=== PATIENT | male | born 1945 | race Caucasian/White ===

== ENCOUNTER 2024-09-06 04:34 | Emergency (ER) | payer BC, SELFPAY ==
[2024-09-06] VITALS (9 sets, daily range): BP systolic 137–169; BP diastolic 66–94; PULSE 84; O2SAT 93; BMI 30.1
[2024-09-06] MEDS: PERCOCET 5/325 1 TABLET PO (05:29)
[2024-09-06] MEDS: MOTRIN 400 MG PO (05:29)
--- NOTE | 2024-09-06 05:35 | EDRN ---
Pt. medicated for pain per MAR orders. RN explained to pt. plan to place knee immobilzer/trial ambulation, pt. began crying hysterically, stating, 'oh my god, oh my god, tell the doctor to get back in here, I can't even function, I need to be
checked into this hospital now'. RN attempted to calm pt., explained to pt. pain medications just now administered and could take time to take effect, RN explained will allow time, then will reassess pain level.
--- NOTE | 2024-09-06 06:07 | ED.GENMED ---
History of Present Illness
<Elias Brock MD - Last Filed: 09/08/24 13:30>
General
Chief Complaint: Musculo-Skeletal Complaint
Source: patient
Exam Limitations: none
Time Seen by Provider: 09/06/24 04:52
Nursing documentation reviewed up to this point in time: agreed with
History of Present Illness
History of Present Illness:
Patient with history of rheumatoid arthritis and osteoarthritis, presents to ED secondary to worsening right knee pain with swelling over the past 24 hours. Denies fever or chills. Denies direct trauma. Patient recently traveled from [place],
visiting family. Yesterday, patient states that he woke up with knee stiffness, which progressed to worsening pain, as he was visiting multiple family numbers and walking more than usual. Of note, patient reports having consultation with his
orthopedic surgeon this summer, at which time, he was told that his right knee is 'syic-io-juer', but not ready for surgery.
Review of Systems
<Elias Brock MD - Last Filed: 09/08/24 13:30>
Review of Systems
Allergies reviewed?: Yes
All Other Systems: ROS reviewed and negative except as documented in HPI and ROS
Constitutional: Reports no symptoms
Musculoskeletal: Reports other (knee pain)
Skin: Reports no symptoms
Neurological: Reports no symptoms
Phy Exam
<Elias Brock MD - Last Filed: 09/08/24 13:30>
Physical Exam
Physical Exam:
Physical Exam
General: mild painful distress, not acutely ill. afebrile
Head: nc/at. eomi
Neck: supple. normal range of motion
Neuro: alert and oriented x 3. no focal neurological deficits
Skin: no rash
Psychiatric: well kept. interactive and cooperative
Extremities: right knee - mild suprapatellar swelling noted with diffuse tenderness to palpation, without erythema/ecchymosis/warmth. calf nontender to palpation, withou swelling.
Course
<Elias Brock MD - Last Filed: 09/08/24 13:30>
Orders/Labs/Results
Orders:
Orders
09/06/24 04:52
Knee, Right 4 or More Views [CR Knee- Right 4 Or More View*] Urgent
Comment:
Reason For Exam: significant non traumatic pain
09/06/24 05:21
Ibuprofen [Motrin] 400 mg PO NOW STA
Oxycodone/Acetaminophen [Percocet 5/325] 1 tablet PO NOW STA
09/06/24 05:22
Knee Immobilizer Right-Treatme ONCE
09/06/24 06:10
Case Management Consult ONCE
Case Management Consult: Discharge Planning
Physical Therapy Consult [Pt Eval And Treat] Urgent
Activity Level: As Tolerated
09/06/24 09:50
Hydrocodone 5/APAP 325 [[place] 5/325] 1 tablet PO NOW STA
Vital Signs
Initial and Last Documented VS:
Initial Vital Signs
Temp Pulse Resp BP Pulse Ox
97.6 F 92 28 166/94 97
09/06/24 04:38 09/06/24 04:38 09/06/24 04:38 09/06/24 04:38 09/06/24 04:38
Last Documented Vital Signs
Temp Pulse Resp BP Pulse Ox
97.6 F 77 23 140/74 93
09/06/24 04:38 09/06/24 10:15 09/06/24 10:15 09/06/24 10:00 09/06/24 10:00
<Ermias Rodriguez DO - Last Filed: 09/06/24 09:47>
Orders/Labs/Results
Orders:
Orders
09/06/24 04:52
Knee, Right 4 or More Views [CR Knee- Right 4 Or More View*] Urgent
Comment:
Reason For Exam: significant non traumatic pain
09/06/24 05:21
Ibuprofen [Motrin] 400 mg PO NOW STA
Oxycodone/Acetaminophen [Percocet 5/325] 1 tablet PO NOW STA
09/06/24 05:22
Knee Immobilizer Right-Treatme ONCE
09/06/24 06:10
Case Management Consult ONCE
Case Management Consult: Discharge Planning
Physical Therapy Consult [Pt Eval And Treat] Urgent
Activity Level: As Tolerated
09/06/24 09:50
Hydrocodone 5/APAP 325 [[place] 5/325] 1 tablet PO NOW STA
Vital Signs
Initial and Last Documented VS:
Initial Vital Signs
Temp Pulse Resp BP Pulse Ox
97.6 F 92 28 166/94 97
09/06/24 04:38 09/06/24 04:38 09/06/24 04:38 09/06/24 04:38 09/06/24 04:38
Last Documented Vital Signs
Temp Pulse Resp BP Pulse Ox
97.6 F 77 23 140/74 93
09/06/24 04:38 09/06/24 10:15 09/06/24 10:15 09/06/24 10:00 09/06/24 10:00
<Elias Brock MD - Last Filed: 09/08/24 13:30>
MDM/Problems Addressed
MDM/Problems Addressed:
x-ray: no acute findings, on my preliminary reading. Patient provided with pain medication and will be reassessed. If symptoms persist, may necessitate an evaluation with PT evaluation, along with case management consultation.
<Ermias Rodriguez DO - Last Filed: 09/06/24 09:47>
*Radiology
Radiology exam reviewed: radiology read reviewed (Right knee x-ray no acute findings)
*Pulse Oximetry
Patient hypoxic: no
*Critical Care Note
Total Time (30-74mins, 75-104mins- exclusive of procedures): Not Applicable
<Ermias Rodriguez DO - Last Filed: 09/06/24 09:47>
Patient Management
Social determinants of health affecting care: Living situation and Strong social support
Discussion with other providers: Other (Physical therapy)
Escalation/DeEscalation of care consider admission/obs:
Admit not indicated
<Ermias Rodriguez DO - Last Filed: 09/06/24 09:47>
Update Note
Update Note:
Patient ambulated with a walker. Stable for discharge. He will follow-up with his orthopedist in [place].
ED Attending Note
<Elias Brock MD - Last Filed: 09/08/24 13:30>
-
Portions of this chart may have been created with voice recognition software.� Occasional wrong word or��sound alike� substitutions may have occurred due to the inherent limitations of voice recognition software.
Discharge Plan
Departure
Patient Disposition: Home (Routine Discharge)
Date of Disposition: 09/06/24
Time of Disposition: 09:15
Patient with high blood pressure during this ER visit?: Yes
Condition: Good
Discharge Problem:
Acute pain of left knee
Instructions: Knee Pain (DC), How to use a walker, BLOOD PRESSURE
Prescriptions:
New
hydrocodone-acetaminophen 5-325 mg tablet
1 tab PO Q4H PRN (Reason: Pain) Qty: 7 0RF
Referrals:
NONE,* [Family Provider] -
Activity Restrictions/Additional Instructions:
Follow-up with your orthopedist in [place].
Interventions
Interventions:
*Risk Screen - Suicide Last Done: 09/06/24 04:38
*General Assessment Last Done: 09/06/24 06:34
*Neglect/Abuse Screening Last Done: 09/06/24 04:38
ED- Fall Risk Assessment Last Done: 09/06/24 10:40
*ED COVID-19 Vaccine History Last Done: 09/06/24 06:34
*Nursing Disposition Last Done: 09/06/24 10:40
ED-Musculoskeletal Assessment Last Done: 09/06/24 04:45
Discharge Date and Time
Discharge Date/Time: 09/06/24 10:40
Print Language: MONGOLIAN
--- NOTE | 2024-09-06 06:32 | EDRN ---
Pt. continues to refuse knee immobilizer/ambulation trial r/t pain w/ movement.
--- NOTE | 2024-09-06 07:47 | EDRN ---
Pt is awaiting PT/OT and case management at this time.
--- NOTE | 2024-09-06 08:35 | EDRN ---
PT in room w/ pt.
--- NOTE | 2024-09-06 09:50 | EDRN ---
Pt is discharged pending case management.
--- NOTE | 2024-09-06 09:51 | EDRN ---
Message left at [phone] for case management to see pt.
--- NOTE | 2024-09-06 10:02 | EDRN ---
Case management was in to see pt and said pt w/ discharge papers needs a script to go w/ him for PT and OT to set that up when he returns home.
[2024-09-06] MEDS: NORCO 5/325 1 TABLET PO (10:16)
--- NOTE | 2024-09-06 10:21 | CM ---
Patient in visiting for the Holidays.
presents to ED with knee pain. per patient bone on bone.
Plan is return home to [place] with f/u with his MD.
PT recommending home care.
patient agreeable to home with script for outpatient therapy and if home care is needed will contact his MD.
PT issued at .
RN updated and will obtain script from MD.
CM [place]
Plan: home with outpatient PT/OT
--- NOTE | 2024-09-06 10:35 | EDRN ---
Pt received prescription for PT/OT to take home w/ him as he is from [place].
== END 2024-09-06 10:40 | disposition home or self-care (01) ==
LOC: EMR 04:34
PROVIDERS: EMERGENCY PHYSICIAN Emergency Medicine
DX: M25.562 Pain in left knee (principal); M06.9 Rheumatoid arthritis, unspecified
CPT/HCPCS: 29505; 99283; 73564